=== PATIENT | female | born 1965 | race Two or more races ===

== ENCOUNTER 2024-08-22 15:14 | Emergency (ER) | payer OTHER ==
[~2024-08-22] VITALS: Ht 162.6 cm; Wt 84.0 kg
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
[2024-08-22] MEDS ORDERED: HYDR-4902 PO (17:48)
[2024-08-22] MEDS ORDERED: BACL10TA PO (17:48)
[2024-08-22 18:02] VITALS: BP 126/72; PULSE 86; RESP 18; TEMP 98.6; O2SAT 97
== END 2024-08-22 17:54 | disposition home or self-care (01) ==
LOC: ER 15:14 → EDBD 15:14 → ER 17:54
DX: S16.1XXA Strain of muscle, fascia and tendon at neck level, initial encounter (principal); M25.512 Pain in left shoulder; V89.2XXA Person injured in unspecified motor-vehicle accident, traffic, initial encounter; Y93.89 Activity, other specified; Y92.89 Other specified places as the place of occurrence of the external cause; Y99.8 Other external cause status
CPT/HCPCS: 72040